=== PATIENT | female | born 1965 | race Caucasian/White ===

== ENCOUNTER → 2021-03-05 | Outpatient (CLI) | payer OTHER ==
[2021-03-06 00:24] LABS: RHEUMATOID FACTOR <10.0 IU/mL (0.0-13.9)
--- NOTE | 2021-03-06 08:58 | RAD ---
XR EXAM OF ANKLE_LEFT 2V History: Left ankle pain. Comparison: None. Technique: 2 views the left ankle. Findings: Osseous mineralization is normal. No fracture or dislocaton. 6 mm lucency at the medial talar dome. M ild degenerative changes of the anterior tibiotalar joint. Moderate plantar calcaneal enthesophyte. N o focal soft tissue swelling. Impression: 1. No acute osseous abnormality of the left ankle. 2. 6 mm lucency in the medial talar dome suspicious for osteochondral injury. Consider MRI for furth er evaluation. Electronically signed by: Micha Machuca MD (03/06/2021 8:56 AM) [id number]
--- NOTE | 2021-03-06 09:02 | RAD ---
XR KNEE_LT 1-2 VIEWS History: Left knee pain. Comparison: None. Technique: 2 views the left knee. Findings: Normal mineralization. No fracture or dislocation. Narrowing of the patellofemoral and medial tibiofe moral components. Bulky tricompartmental osteophytes. No significant effusion. No focal soft tissue s welling. Impression: 1. Moderate degenerative changes of the left knee. Electronically signed by: Micha Machuca MD (03/06/2021 9:00 AM) [id number]
--- NOTE | 2021-03-06 09:03 | RAD ---
XR LUMBAR SPINE 2-3V History: Low back pain. Comparison: None available Technique: 2 views of the lumbar spine. Findings: There are 5 non-rib bearing lumbar vertebral segments. There is no evidence of fracture. No destructive osseous lesions. Alignment is normal. Mild facet hypertrophy L5-S1 and L4-L5. Severe disc height loss L5-S1 with prominent anterior osteophytes. Sacroiliac joints are unremarkable. Soft tissues are unremarkable. IMPRESSION: 1. Advanced degenerative changes of the lumbar spine L5-S1. Electronically signed by: Micha Machuca MD (03/06/2021 9:01 AM) [id number]
[2021-03-06 18:12] LABS: ANA INTERP Negative (.)
== END ==
LOC: RAD 11:31
PROVIDERS: ATTEND Anesthesiology Pain Medicine
DX: Z02.71 Encounter for disability determination (principal); M47.817 Spondylosis without myelopathy or radiculopathy, lumbosacral region; M17.12 Unilateral primary osteoarthritis, left knee; M19.072 Primary osteoarthritis, left ankle and foot; M77.32 Calcaneal spur, left foot; M25.762 Osteophyte, left knee
CPT/HCPCS: 36415; 72100; 73560; 73600; 86038; 86431

== ENCOUNTER 2021-09-11 12:59 | Emergency (ER) | payer OTHER ==
[~2021-09-11] VITALS: Ht 160 cm; Wt 154.5 kg
[2021-09-11 13:11] VITALS: BP 147/90
--- NOTE | 2021-09-11 13:26 | PHYS DOC ---
Past Medical History Past Medical History: Diabetes-Type II, High Cholesterol, Hypertension Additional Past Medical Histor: lower back pain, gout Past Surgical History: , Hysterectomy General Adult EDM: Chief Complaint: ABDOMINAL PAIN HPI: HPI: Patient is a 56 year old female with a history of diabetes type 2, hypertension, high cholesterol, presenting today complaining of mild intermittent right-sided abdominal pain radiating to her back, symptoms began 2 days ago. Patient denies anything specifically exacerbating or relieving her symptoms. She reports associated nausea but no vomiting. Denies any diarrhea. She states she had 2 normal bowel movements yesterday and one normal bowel movement today. Denies any fever. Denies any chest pain or shortness of breath. Denies any coughing or congestion. Review of Systems: Review of Systems: Constitutional: Denies fever or chills. [] Eyes: Denies change in visual acuity. [] HENT: Denies nasal congestion or sore throat. [] Respiratory: Denies cough or shortness of breath. [] Cardiovascular: Denies chest pain or edema. [] GI: Reports right-sided abdominal pain radiating to the back with nausea, denies any vomiting, bloody stools or diarrhea. [] : Denies dysuria. [] Musculoskeletal: Denies back pain or joint pain. [] Integument: Denies rash. [] Neurologic: Denies headache, focal weakness or sensory changes. [] Psychiatric: Denies depression or anxiety. [] Heart Score: C/O Chest Pain: N/A Risk Factors: Risk Factors: DM, Current or recent (<one month) smoker, HTN, HLP, family history of CAD, obesity. Risk Scores: Score 0 - 3: 2.5% MACE over next 6 weeks - Discharge Home Score 4 - 6: 20.3% MACE over next 6 weeks - Admit for Clinical Observation Score 7 - 10: 72.7% MACE over next 6 weeks - Early Invasive Strategies Current Medications: Current Medications Medications (Trade) Dose Ordered Sig/Kirill Start Time Stop Time Status Last Admin Dose Admin Famotidine (Pepcid Vial) 20 mg 1X ONCE 09/11/21 13:30 09/11/21 13:31 UNV Fentanyl Citrate (Fentanyl 2ml Vial) 50 mcg 1X ONCE 09/11/21 13:30 09/11/21 13:31 UNV Ondansetron HCl (Zofran) 4 mg 1X ONCE 09/11/21 13:30 09/11/21 13:31 UNV Sodium Chloride 1,000 ml @ 1,000 mls/hr 1X ONCE 09/11/21 13:30 09/11/21 14:29 UNV Allergies: Allergies: Allergies Coded Allergies Type Severity Reaction Last Updated Verified omeprazole Allergy Intermediate 09/11/21 Yes amlodipine Allergy Mild 09/11/21 Yes lisinopril Allergy Mild 09/11/21 Yes latex Allergy Unknown 09/11/21 Yes Physical Exam: PE: Constitutional: Well developed, well nourished, no acute distress, non-toxic appearance. [] HENT: Normocephalic, atraumatic, bilateral external ears normal, oropharynx m oist, no oral exudates, nose normal. [] Eyes: PERRLA, EOMI, conjunctiva normal, no discharge. [] Neck: Normal range of motion, no tenderness, supple, no stridor. [] Cardiovascular:Heart rate regular rhythm, no murmur [] Lungs & Thorax: Bilateral breath sounds clear to auscultation [] Abdomen: Obese abdomen. Bowel sounds normal, soft, diffuse tenderness to the right upper to mid abdomen, negative Obando sign, no point tenderness to the right lower quadrant, tenderness, no masses, no pulsatile masses. [] Skin: Warm, dry, no erythema, no rash. [] Back: No tenderness, no CVA tenderness. [] Extremities: No tenderness, no cyanosis, no clubbing, ROM intact, no edema. [] Neurologic: Alert and oriented X 3, normal motor function, normal sensory function, no focal deficits noted. [] Psychologic: Affect normal, judgement normal, mood normal. [] Current Patient Data: Vital Signs: Vital Signs Date Time Temp Pulse Resp B/P (MAP) Pulse Ox O2 Delivery O2 Flow Rate FiO2 09/11/21 13:11 98.1 78 18 147/90 (109) 97 Room Air 98.1 EKG: EKG: [] Radiology/Procedures: Radiology/Procedures: []PROCEDURE: CT ABD PELV W/ IV CONTRST ONLY Exam Date: 09/11/2021 2:[address] ABDOMEN+PELVIS W Indication: Reason: right sided abd pain / Spl. Instructions: [id number] 60ML / History: . TECHNIQUE: CT examination of the abdomen and pelvis was performed following the administration of nonionic intravenous contrast. One or more of the following dose reduction techniques were utilized: *Automated exposure control (AEC) *Adjustment of mA and/or kV according to patient size *Use of iterative reconstruction technique *CT scan done according to ALARA, or ALARA/IMAGE GENTLY FINDINGS: The visualized lung bases are clear. There is a 1.6 cm hypodensity with rim calcification at the splenic hilum. This is nonspecific but could represent an aneurysm or nonspecific splenic lesion. There is a 1.6 cm left adrenal lesion measuring 60 Hounsfield units, nonspeci fic. The liver, gallbladder, spleen, pancreas, adrenal glands and kidneys are otherwise normal. Urinary bladder is normal in appearance. There is no bowel obstruction or inflammation. No evidence for acute appendicitis. No significant atherosclerotic calcifications are seen. No lymphadenopathy or ascites is seen. Degenerative changes are seen in the spine. IMPRESSION: No evidence of acute intra-abdominal pathology. Indeterminate left adrenal lesion. Further workup with nonemergent CT or MRI with and without contrast using adrenal protocol is recommended. Hypodense lesion at the splenic hilum has a benign appearance and may represent an aneurysm or other nonspecific splenic lesion. Electronically signed by: Trisha Hernandez MD (09/11/2021 2:39 PM) [id number] DICTATED and SIGNED BY: TRISHA HERNANDEZ MD DATE: 09/11/21 1424 PROCEDURE: ABDOMEN LTD Exam Date: 09/11/2021 1:51 PM US ABDOMEN LIMITED Indication: Reason: R sided abd pain / Spl. Instructions: / History: . TECHNIQUE: Multiple longitudinal and transverse sonographic images of the right upper quadrant and gallbladder are submitted for interpretation. FINDINGS: The liver is normal in size and echogenicity. The portal vein is patent with hepatopetal flow. No focal intrahepatic abnormality is seen. The gallbladder is normal, without gallstones, gallbladder wall thickening or pericholecystic fluid. There is no biliary ductal dilatation, with the common bile duct measuring 5 mm. The visualized abdominal aorta, inferior vena cava and pancreas are within normal limits. There is no upper abdominal ascites. The right kidney is normal in appearance, measuring 9.4 cm. IMPRESSION: Normal right upper quadrant abdominal ultrasound exam. Electronically signed by: Trisha Hernandez MD (09/11/2021 2:45 PM) [id number] DICTATED and SIGNED BY: TRISHA HERNANDEZ MD DATE: 09/11/21 1441 Course & Med Decision Making: Course & Med Decision Making Pertinent Labs and Imaging studies reviewed. (See chart for details) This a 56-year-old female patient presented to the ED today with right-sided abdominal pain radiating to her back, symptoms began 2 days ago. Vitals on arrival to the ED temperature 98.1, heart rate 78, respiration 18 on room air, blood pressure 147/90, O2 sats 97%. CBC with a WBC of 12.3, CMP with slightly elevated ALT at 168, AST and ALT are normal. Urine noted for trace amount of blood, small amount of leukocytes unfortunately this urine is also contaminated with squamous cells epithelium. Right upper quadrant ultrasound is negative for any acute findings CT of the abdomen and pelvis No evidence of acute intra-abdominal pathology. Noted for indeterminate left adrenal lesion. Further workup with nonemergent CT or MRI with and without contrast using adrenal protocol is recommended. Hypodense lesion at the splenic hilum has a benign appearance and may represent an aneurysm or other nonspecific splenic lesion. Above CT results were discussed with patient, she will follow-up with PCP for this. Provided GI for follow-up Eric Disclaimer: Eric Disclaimer: This electronic medical record was generated, in whole or in part, using a voice recognition dictation system. Departure Departure Impression: Primary Impression: Right upper quadrant abdominal pain Additional Impression: Lesion of adrenal gland Disposition: HOME / SELF CARE / HOMELESS Condition: STABLE Referrals: NON,STAFF (PCP) SALLIE LARA MD follow up in one week Patient Instructions: Abdominal Pain (Nonspecific) Additional Instructions: You were evaluated in the emergency room for abdominal pain. Your work-up in the emergency room was negative for any acute findings. You were noted to have some lesions on your left kidney and the spleen. Please follow-up with your primary care doctor for further work-up on this. We provided you a logistics director, follow-up with them if pain persist. Take the prescribed medications as needed for your symptoms. Scripts Dicyclomine Hcl (DICYCLOMINE HCL) 20 Mg Tablet 1 TAB PO TID, #30 TAB 1 Refill Prov: MARC CORADO [employer] 09/11/21 Ondansetron (ONDANSETRON ODT) 4 Mg Tab.rapdis 1 TAB PO PRN Q6-8HRS, #16 TAB Prov: MARC CORADO APRN 09/11/21 MARC CORADO APRN Sep 11, 2021 13:26
[2021-09-11] MEDS ORDERED: IV NORMAL SALINE 1000ML BAG 1,000 ML IV ONE (13:30)
[2021-09-11] MEDS ORDERED: FAMOTIDINE 20 MG/2 ML VIAL IVP ONE (13:30)
[2021-09-11] MEDS ORDERED: fentaNYL PF VIAL 100 MCG/2 ML VIAL IVP ONE (13:30)
[2021-09-11] MEDS ORDERED: ONDANSETRON PF 4 MG/2 ML VIAL. IVP ONE (13:30)
[2021-09-11 13:41] LABS: CALCIUM 9.2 mg/dL (8.5-10.1); GFR 57.4; POTASSIUM 4.1 mmol/L (3.5-5.1)
[2021-09-11 13:47] LABS: ALBUMIN 3.4 g/dL (3.4-5.0); ALBUMIN/GLOBULIN RATIO 0.7 (1.0-1.7); TOTAL BILIRUBIN 1.1 mg/dL (0.2-1.0); TOTAL PROTEIN 8.3 g/dL (6.4-8.2)
[2021-09-11 14:00] LABS: BACTERIA,URINE FEW /HPF (0-FEW)
[2021-09-11 14:00] LABS: BASO # 0.2 x10^3/uL (0.0-0.2); BASO % 1 % (0-3); EOS # 0.1 x10^3/uL (0.0-0.7); EOS % 1 % (0-3); HEMATOCRIT 40.9 % (36.0-47.0); HEMOGLOBIN 13.5 g/dL (12.0-15.5); LYMPH # 3.2 x10^3/uL (1.0-4.8); LYMPH % 26 % (24-48); MEAN CORPUSCULAR HEMOGLOBIN 31 pg (25-35); MEAN CORPUSCULAR HGB CONC 33 g/dL (31-37); MEAN CORPUSCULAR VOLUME 95 fL (79-100); MONO # 0.7 x10^3/uL (0.0-1.1); MONO % 6 % (0-9); NEUT # 8.1 x10^3/uL (1.8-7.7); NEUT % 66 % (31-73); PLATELET COUNT 397 x10^3/uL (140-400); RED BLOOD COUNT 4.32 x10^6/uL (3.50-5.40); RED CELL DISTRIBUTION WIDTH 12.4 % (11.5-14.5); WHITE BLOOD COUNT 12.3 x10^3/uL (4.0-11.0)
[2021-09-11] MEDS ORDERED: IOHEXOL 300 MG/ML 100ML VIAL. IV ONE (14:15)
--- NOTE | 2021-09-11 14:41 | RAD ---
Exam Date: 09/11/2021 2:[address] ABDOMEN+PELVIS W Indication: Reason: right sided abd pain / Spl. Instructions: [id number] 60ML / History: . TECHNIQUE: CT examination of the abdomen and pelvis was performed following the administration of no nionic intravenous contrast. One or more of the following dose reduction techniques were utilized: *Automated exposure control (AEC) *Adjustment of mA and/or kV according to patient size *Use of iterative reconstruction technique *CT scan done according to ALARA, or ALARA/IMAGE GENTLY FINDINGS: The visualized lung bases are clear. There is a 1.6 cm hypodensity with rim calcification at the splenic hilum. This is nonspecific but c ould represent an aneurysm or nonspecific splenic lesion. There is a 1.6 cm left adrenal lesion lin uring 60 Hounsfield units, nonspecific. The liver, gallbladder, spleen, pancreas, adrenal glands and kidneys are otherwise normal. Urinary bladder is normal in appearance. There is no bowel obstruction or inflammation. No evidence for acute appendicitis. No significant atherosclerotic calcifications are seen. No lymphadenopathy or ascites is seen. Degenerative changes are seen in the spine. IMPRESSION: No evidence of acute intra-abdominal pathology. Indeterminate left adrenal lesion. Further workup with nonemergent CT or MRI with and without contra st using adrenal protocol is recommended. Hypodense lesion at the splenic hilum has a benign appearance and may represent an aneurysm or other nonspecific splenic lesion. Electronically signed by: Onesimo Hernandez MD (09/11/2021 2:39 PM) [id number]
--- NOTE | 2021-09-11 14:47 | RAD ---
Exam Date: 09/11/2021 1:51 PM US ABDOMEN LIMITED Indication: Reason: R sided abd pain / Spl. Instructions: / History: . TECHNIQUE: Multiple longitudinal and transverse sonographic images of the right upper quadrant and g allbladder are submitted for interpretation. FINDINGS: The liver is normal in size and echogenicity. The portal vein is patent with hepatopetal flow. No f ocal intrahepatic abnormality is seen. The gallbladder is normal, without gallstones, gallbladder wall thickening or pericholecystic fluid. There is no biliary ductal dilatation, with the common bile duct measuring 5 mm. The visualized abdominal aorta, inferior vena cava and pancreas are within normal limits. There is n o upper abdominal ascites. The right kidney is normal in appearance, measuring 9.4 cm. IMPRESSION: Normal right upper quadrant abdominal ultrasound exam. Electronically signed by: Onesimo Hernandez MD (09/11/2021 2:45 PM) [id number]
[2021-09-11] MEDS ORDERED: ONDA4TAB12 PO (15:21)
[2021-09-11] MEDS ORDERED: DICY20TA PO (15:21)
== END 2021-09-11 15:57 | disposition home or self-care (01) ==
LOC: ER 12:59
DX: R10.11 Right upper quadrant pain (principal); R10.84 Generalized abdominal pain; R11.0 Nausea; E11.9 Type 2 diabetes mellitus without complications; E78.00 Pure hypercholesterolemia, unspecified; I10 Essential (primary) hypertension; M10.9 Gout, unspecified; Z90.710 Acquired absence of both cervix and uterus; Z88.6 Allergy status to analgesic agent; Z91.040 Latex allergy status; Z88.8 Allergy status to other drugs, medicaments and biological substances
CPT/HCPCS: 36415; 74177; 76705; 80053; 81001; 83690; 85025; 87086; 96374; 96375; 99285; J2405; J3010; J3490; J7030; Q9967